=== PATIENT | male | born 1950 | race Caucasian/White ===

== ENCOUNTER → 2016-09-01 | Outpatient (CLI) | payer OTHER ==
--- NOTE | 2016-09-01 19:32 | DX ---
PA and Lateral Chest on September 01, 2016 Clinical Indications: Preoperative evaluation in a 66-year-old male; no previous chest films are andry ilable for comparison. Findings: No focal pulmonary consolidation is identified. There is mild peribronchial thickening and possible hyperexpansion. The heart and pulmonary vessels are normal. There are no pleural effusions and no pneumothorax. Spinal degenerative changes are noted. Impression: Suspect airways disease with no superimposed pneumonia identified.
== END ==
LOC: FIMAGING 11:48
PROVIDERS: ATTEND Family Medicine
DX: Z01.811 Encounter for preprocedural respiratory examination (principal)

== ENCOUNTER → 2016-09-20 | Outpatient (CLI) | payer OTHER ==
--- NOTE | 2016-09-20 16:14 | US ---
Ultrasound and Venous Duplex Doppler Study of Left Lower Extremity History: Left leg pain Technique: High frequency transducer was used for imaging and Doppler study of the veins of the lowe r extremity. Pulsed Doppler and color Doppler were utilized, along with various maneuvers to assess flow in the veins. Findings: The deep veins of the lower extremity are normally compressible between the groin and the upper calf and have normal Doppler waveforms within them. No deep venous thrombosis is identified. No superficial phlebitis is identified. There is a small 1.9 cm Davsi's cyst. Impression: 1. No evidence of deep vein thrombosis in the left lower extremity. 2. Small Davis's cyst. Results called to Jenna as requested.
== END ==
LOC: FIMAGING 15:07
DX: M71.22 Synovial cyst of popliteal space [Baker], left knee (principal)

== ENCOUNTER → 2017-12-28 | Outpatient (CLI) | payer OTHER | LOC: FIMAGING 12:06 | PROVIDERS: ATTEND Physician Assistant Medical | DX: M10.9 Gout, unspecified (principal) ==

== ENCOUNTER → 2018-09-25 | Outpatient (CLI) | payer OTHER, MEDICARE | LOC: FIMAGING 10:23 | PROVIDERS: ATTEND Family Medicine | DX: M19.011 Primary osteoarthritis, right shoulder (principal); M25.78 Osteophyte, vertebrae ==

== ENCOUNTER → 2018-11-21 | Outpatient (CLI) | payer OTHER, MEDICARE | LOC: FIMAGING 13:37 | PROVIDERS: ATTEND Family Medicine | DX: M19.011 Primary osteoarthritis, right shoulder (principal); M75.91 Shoulder lesion, unspecified, right shoulder; S43.011A Anterior subluxation of right humerus, initial encounter; M85.411 Solitary bone cyst, right shoulder ==